=== PATIENT | male | born 1985 | race Caucasian/White ===

== ENCOUNTER 2021-08-13 16:00 | Emergency (ER) | payer OTHER ==
[~2021-08-13] VITALS: Ht 167.6 cm; Wt 97.5 kg
--- NOTE | ~2021-08-13 | EKG ---
[address] [place] [address] ELECTROCARDIOGRAM REPORT Name: NEEMA AMAYA Room #: [facility] Maurice#: [id number] Admission: 08/13/21 Attend Phys: Discharge: 08/13/21 Date of : 85 Report #: [id number] [facility] ED Test Date: 2021-08-13 Test Time: 00:30:27 Pat Name: NEEMA AMAYA Department: Room: Gender: M Ekg Monitor: [place]ANTA : 1985 Requested By: Alexis Pyle Order Number: [id number] MD: Measurements Intervals [place] Rate: 105 P: 55 NM: 148 QRS: 5 QRSD: 97 T: 31 QT: 332 QTc: 439 Interpretive Statements Sinus tachycardia Lateral infarct, acute (LAD) ST elevation, consider inferior injury No previous ECG available for comparison [email or web address] By: 003 Epiphany MD Aileen /EPI
[2021-08-13 16:31] VITALS: BP 178/84
[2021-08-13 16:53] LABS: BASOPHILS 0.2 % (0.0-2.0); EOSINOPHILS 0.3 % (0.0-3.0); HEMATOCRIT 39.7 % (42.0-52.0); HEMOGLOBIN 13.7 gm/dL (14.0-18.0); LYMPHOCYTES 6.9 % (24.0-44.0); MCH 31.3 pg (26.0-34.0); MCHC 34.5 g/dL (28.0-37.0); MCV 90.8 fL (80.0-100.0); MONOCYTES 8.4 % (1.0-8.0); PLATELET COUNT 291 thou/uL (150-400); POLYS 84.2 % (36.0-66.0); RBC 4.37 mil/uL (4.50-6.00); RDW 12.9 % (10.5-14.5)
[2021-08-13 17:01] LABS: CALCIUM 9.5 mg/dL (8.5-10.1); POTASSIUM 3.7 mmol/L (3.5-5.1)
[2021-08-13 17:12] LABS: ALBUMIN 4.2 g/dL (3.4-5.0); DIRECT BILIRUBIN 0.1 mg/dL (<0.1-0.2); TOTAL BILIRUBIN 0.5 mg/dL (0.2-1.0); TOTAL PROTEIN 7.5 g/dL (6.4-8.2)
--- NOTE | 2021-08-14 07:39 | EKG ---
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
--- NOTE | 2021-08-14 10:25 | EKG ---
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: [place] : 1985 Requested By: Alexis Pyle Order Number: [id number] MD: Cameron Wolfe Measurements Intervals [place] Rate: 104 P: 43 MT: 146 QRS: 6 QRSD: 98 T: 33 QT: 308 QTc: 405 Interpretive Statements Sinus tachycardia J Point elevation precordial leads Compared to ECG 08/13/2021 16:07:20 No significant change Electronically Signed On 08-14-2021 10:25:47 [employer]ES INSPECT[employer] by Cameron Wolfe [email or web address] <ELECTRONICALLY SIGNED> By: Cameron Wolfe MD, [facility] 08/14/21 1025 [id number] Cameron Wolfe MD, FACC /EPI
== END 2021-08-13 19:37 | disposition home or self-care (01) ==
LOC: ER 16:00
PROVIDERS: Physician Assistant
DX: R07.89 Other chest pain (principal)